=== PATIENT | female | born 1955 | race Caucasian/White ===

== ENCOUNTER 2016-10-26 08:48 | Day surgery (SDC) | payer BC ==
[2016-10-26] MEDS ORDERED: MIDAZOLAM 2 MG/2 ML VIAL IVP ONE (08:51)
[2016-10-26] MEDS ORDERED: fentaNYL 100 MCG/2 ML INJ IVP ONE (08:51)
[2016-10-26] MEDS ORDERED: NS 500 ML IV ONE (08:51)
[2016-10-26] MEDS ORDERED: PROPOFOL 200 MG/20 ML VIAL IVP ONE (08:51)
--- NOTE | 2016-10-26 09:09 | CPEKG ---
Heart Rate: 85 RR Interval: 706 QRSD Interval: 110 QT Interval: 352 QTC Interval: 419 QRS [place]: 67 T Wave [place]: -13 EKG Severity - ABNORMAL ECG - EKG Impression: ATRIAL FIBRILLATION, V-RATE 61-116 EKG Impression: NONSPECIFIC INTRAVENTRICULAR CONDUCTION DELAY Electronically Signed By: Leno Hong 26-Oct-2016 10:02:25
[2016-10-26 09:45] LABS: ANION GAP 9 mEq/L (8-16); CALCIUM 9.7 mg/dL (8.5-10.4); CARBON DIOXIDE 29 mEq/l (22-31); CHLORIDE 105 mEq/L (97-110); GLOMERULAR FILTRATION RATE 57; GLUCOSE 107 mg/dL (70-100); MAGNESIUM 2.3 mg/dL (1.6-2.3); POTASSIUM 4.8 mEq/L (3.5-5.2); SODIUM 143 mEq/L (134-144)
[2016-10-26 09:51] LABS: INR 1.1 (0.83-1.16); PROTIME(PATIENT) 14.1 SEC (12.0-15.0)
[2016-10-26 09:52] LABS: APTT 29.7 SEC (23.0-38.0)
--- NOTE | 2016-10-26 11:29 | CPEKG ---
Heart Rate: 58 RR Interval: 1034 P-R Interval: 216 QRSD Interval: 110 QT Interval: 416 QTC Interval: 409 P [place]: 72 QRS [place]: 63 T Wave [place]: 50 EKG Severity - ABNORMAL ECG - EKG Impression: SINUS RHYTHM EKG Impression: FIRST DEGREE AV BLOCK EKG Impression: LEFT ATRIAL ABNORMALITY EKG Impression: NONSPECIFIC INTRAVENTRICULAR CONDUCTION DELAY Electronically Signed By: Leno Hong 26-Oct-2016 13:08:24
--- NOTE | 2016-10-26 17:22 | SUROPNOTE ---
[facility] Operative Report - Surgery Date of procedure: 10/26/16 Indication: This patient is a 60 year old woman, with a history of paroxysmal atrial fibrillation, now presenting with likely persistent atrial fibrillation, duration of one month. This occurs despite medical management with Diltiazem and Rhythmol. She is anticoagulated with Eliquis and has not missed any doses. She is symptomatic with fatigue and dyspnea on exertion. Plan for cardioversion to convert to normal sinus rhythm. Procedures performed: 1. Cardioversion Description of procedure: Risks, benefits, and alternatives were discussed. Informed consent was obtained. Anesthesia was performed by Dr. Zambrano with propofol. Patient received a 200 joule biphasic synchronized shock using hands-off pads. This converted briefly (20 beats) to normal sinus rhythm, however then resulted in atrial flutter. Patient then received a second 200 joule biphasic synchronized shock using hands-off pads converting to sinus rhythm. Impression: 1. Successful cardioversion of atrial fibrillation to normal sinus rhythm. Plan: 1. Referral to Dr. Desir for consultation on ablation for atrial fibrillation. Portions of this report were documented by a medical economics consultant. I have reviewed this report and agree with the documentation. Report scribed for Dr. Romel Vicente. Report scribed by Fatemeh Ramos.
== END 2016-10-26 12:00 | disposition home or self-care (01) ==
LOC: FCATH 08:48
PROVIDERS: ATTEND Internal Medicine Interventional Cardiology
PROC: 5A2204Z Restoration of Cardiac Rhythm, Single (ICD-10-PCS; principal; 2016-10-26)
DX: I48.1 Persistent atrial fibrillation (principal); E78.4 Other hyperlipidemia; I10 Essential (primary) hypertension; G47.33 Obstructive sleep apnea (adult) (pediatric); Z87.891 Personal history of nicotine dependence
CPT/HCPCS: J2250; J2704

== ENCOUNTER → 2016-11-26 | Outpatient (CLI) | payer BC ==
[~2016-11-26] MED LIST: IOPAMIDOL (ISOVUE 370) 100 ML BTL IV ONE
== END ==
LOC: FIMAGING 15:30
PROVIDERS: ATTEND Internal Medicine Cardiovascular Disease
DX: I48.2 Chronic atrial fibrillation (principal); K44.9 Diaphragmatic hernia without obstruction or gangrene
CPT/HCPCS: Q9967

== ENCOUNTER 2017-02-12 06:28 | Observation (INO) | payer BC ==
[2017-02-12] MEDS ORDERED: NS 1,000 ML IV ONE (06:33)
[2017-02-12] MEDS ORDERED: MIDAZOLAM 2 MG/2 ML VIAL IVP ONE (06:33)
--- NOTE | 2017-02-12 06:59 | CPEKG ---
Heart Rate: 89 RR Interval: 674 QRSD Interval: 100 QT Interval: 364 QTC Interval: 443 QRS [place]: 54 T Wave [place]: -21 EKG Severity - ABNORMAL ECG - EKG Impression: ATRIAL FIBRILLATION, V-RATE 67-115 Electronically Signed By: Tony Desir 12-Feb-2017 13:13:39
[2017-02-12 07:28] LABS: % IMMATURE GRANULYOCYTES 0.3 % (0.0-1.1); ABSOLUTE IMMATURE GRANULOCYTES 0.01 10^3/uL (0.00-0.10); ADD DIFF? NO; ADD MORPH? NO; ADD SCAN? NO; ATYPICAL LYMPHOCYTE FLAG 10 (0-99); FRAGMENT RBC FLAG 0 (0-99); HEMATOCRIT 46.6 % (38.0-47.0); HEMOGLOBIN 15.7 g/dL (12.6-16.3); LEFT SHIFT FLG 0 (0-99); LIPEMIA HEMOLYSIS FLAG 80 (0-99); MEAN CELL HEMOGLOBIN 31.2 pg (27.9-34.1); MEAN CELL HEMOGLOBIN CONCENTR. 33.7 g/dL (32.4-36.7); MEAN CELL VOLUME 92.6 fL (81.5-99.8); MEAN PLATELET VOLUME 11.2 fL (8.7-11.7); PLATELET CLUMPS FLAG 50 (0-99); PLATELET COUNT 142 10^3/uL (150-400); RED BLOOD CELL COUNT 5.03 10^6/uL (4.18-5.33); RED CELL DISTRIBUTION WIDTH 13.7 % (11.5-15.2)
[2017-02-12 07:40] LABS: ANION GAP 13 mEq/L (8-16); CARBON DIOXIDE 20 mEq/l (22-31); CHLORIDE 110 mEq/L (97-110); GLOMERULAR FILTRATION RATE 56; GLUCOSE 98 mg/dL (70-100); MAGNESIUM 2.1 mg/dL (1.6-2.3); POTASSIUM 4.7 mEq/L (3.5-5.2); SODIUM 143 mEq/L (134-144)
[2017-02-12] MEDS ORDERED: LIDOCAINE 1% 300 MG/30 ML SDV ONE (07:47)
[2017-02-12] MEDS ORDERED: HEPARIN 10,000 UNIT/10 ML MDV ONE (07:48)
[2017-02-12] MEDS ORDERED: BUPIVACAINE 0.5% 30 ML SDV ONE (07:48)
[2017-02-12] MEDS ORDERED: HEPARIN/DEXTROSE 25,000 UNIT/500 ML BAG ONE (08:17)
[2017-02-12] MEDS ORDERED: MIDAZOLAM 2 MG/2 ML VIAL ONE (08:35)
[2017-02-12] MEDS ORDERED: ROCURONIUM 50 MG/5 ML VIAL ONE (08:36)
[2017-02-12] MEDS ORDERED: SUGAMMADEX SODIUM 200 MG/2 ML VIAL IVP ONE (08:36)
[2017-02-12] MEDS ORDERED: PROPOFOL/EMULSION 500 MG/50 ML BOTTLE IV ONE ×2 (08:36→10:16)
[2017-02-12] MEDS ORDERED: LIDOCAINE 2% 5 ML SDV ONE (08:36)
[2017-02-12] MEDS ORDERED: fentaNYL 100 MCG/2 ML INJ ONE (08:41)
[2017-02-12] MEDS ORDERED: PROPOFOL 200 MG/20 ML VIAL ONE ×2 (08:41→11:09)
[2017-02-12] MEDS ORDERED: IOPAMIDOL (ISOVUE-300) 100 ML BTL ONE ×2 (09:04→09:15)
[2017-02-12 09:53] LABS: INR 1.01 (0.83-1.16); PROTIME(PATIENT) 13.2 SEC (12.0-15.0)
[2017-02-12] MEDS ORDERED: PHENYLEPHRINE 10 MG/ML SDV ONE (10:51)
[2017-02-12] MEDS ORDERED: epHEDrine SULFATE 10 MG/ML SYR ONE (10:51)
[2017-02-12] MEDS ORDERED: ONDANSETRON 4 MG/2 ML VIAL ONE (10:51)
[2017-02-12] MEDS ORDERED: PROTAMINE SULFATE 50 MG/5 ML VIAL IVP ONE (11:20)
[2017-02-12] MEDS ORDERED: ONDANSETRON 4 MG/2 ML VIAL IVP PRN (11:45)
[2017-02-12] MEDS ORDERED: OXYCODONE/APAP 5/325 TAB PO PRN (11:45)
[2017-02-12] MEDS ORDERED: ACETAMINOPHEN 325 MG TAB PO PRN (11:45)
[2017-02-12 12:22] LABS: ANION GAP 8 mEq/L (8-16); CALCIUM 8.8 mg/dL (8.5-10.4); CARBON DIOXIDE 23 mEq/l (22-31); CHLORIDE 109 mEq/L (97-110); CREATININE 0.9 mg/dL (0.6-1.0); GLOMERULAR FILTRATION RATE > 60; GLUCOSE 129 mg/dL (70-100); MAGNESIUM 1.9 mg/dL (1.6-2.3); POTASSIUM 4.3 mEq/L (3.5-5.2); SODIUM 140 mEq/L (134-144)
--- NOTE | 2017-02-12 13:01 | EPPROC ---
Electrophysiology Procedure Note: ELECTROPHYSIOLOGIC STUDY AND BALLOON-CATHETER MEDIATED CRYOABLATION FOR PERSISTENT ATRIAL FIBRILLATION AND ATRIAL FLUTTER Procedures performed: 25815-07 EP evaluation with RA/RV/LA pace/record, with arrhythmia induction 77208-11 EP evaluation with RA/RV pace record, insert/reposition catheter, with arrhythmia induction 80839 Atrial fibrillation ablation Second arrhythmia Intracardiac echocardiogram Transseptal puncture Fluoroscopy INDICATION: Persistent atrial fibrillation PROCEDURE: The patient arrived in the Electrophysiology Laboratory in the fasting state. The right groin, left groin and right infraclavicular area were prepped and draped in the usual sterile fashion. Anesthesiologist administered general anesthesia Dr. Elen Zambrano . All catheters were placed percutaneously using the Seldinger technique and advanced into position under fluoroscopic guidance. One #7 Tamazight deflectable octapolar electrode catheter was placed in the His-bundle position via the left femoral vein (2mm spacing, IVC electrode for unipolar recordings). This catheter was placed in the coronary sinus after transseptal puncture and later placed in the SVC-R subclavian vein junction to pace the right phrenic nerve during right pulmonary vein ablation. One #8 Tamazight AcuNaV ultrasound catheter was placed in the left femoral vein and advanced into the right atrium. One #4 Tamazight sheath was inserted into the left femoral artery via percutaneous technique and used for continuous arterial blood pressure monitoring and intermittent ACT determination. Programmed stimulation was performed from the right atrium, left atrium (CS) and right ventricle. There was no evidence of AV accessory pathway. Intracardiac echo evaluation of the left atrium and pulmonary veins was performed. Baseline ACT was drawn and heparin bolus was administered and heparin drip was started prior to transseptal puncture. ACT was checked every 15 minutes and maintained in the range of 350-400 seconds. Presenting rhythm AFIB, cardioversion was performed. One 14Fr short sheath was placed in the right femoral vein. One 8Fr SL1 sheath was advanced into the right atrium via the 14Fr short sheath. Transseptal puncture was performed under intracardiac ultrasound, fluoroscopic and hemodynamic guidance placing the sheath into the left atrium. [place] RF needle ( C0 curve) was used. The mean left atrial pressure was 12 mmHg. Pulmonary vein angiogram was done using SL1 sheath. CT angiography of pulmonary veins was done previously. There were distinct LSPV, LIPV, RSPV and RIPV. 3D map of LA was performed using Pentaray catheter. This was merged with 3D CT image of left atrium. The SL1 sheath was exchanged for a Medtronic Flexcath sheath using an Amplatz stiff guide wire. A 28 mm Cryoballoon catheter with a 20 mm Achieve catheter was placed via the sheath into the left atrium. Intracardiac ultrasound and PV angiograms were used to assist in placing the mapping catheter at the antrum of the pulmonary veins. All pulmonary veins were isolated successfully using cryoballoon ablation using freeze/thaw/freeze cycles at 2-3-minute intervals, with good [id number] of isolation. Coumadin ridge/Ligament of Marco region was ablated. Pre and post pulmonary vein recordings were measured on the spiral Achieve catheter to ensure complete pulmonary vein isolation. During the right-sided ablation, phrenic nerve pacing was performed to assess the phrenic nerve strength ( manually and with ICE visualization of liver movement during phrenic capture) and the phrenic nerve was intact throughout the right-sided ablation and at the end of the procedure. An esophageal temperature probe (12 electrode, Circa) was placed by the anesthesiologist at the beginning of the procedure. Esophageal temperature was monitored continuously and cryoablation was interrupted if esophageal temperature was <15 C. Cryoapplications 6 total cryoablation time 1080s. Catheters were withdrawn into the RA. Ramp1 sheath was placed. 8mm Alexis catheter was placed via sheath into the RA. Lesions were applied to the CT isthmus and bidirectional conduction block achieved across the CT isthmus. ICE imaging post ablation was consistent with pre ablation imaging with no changes noted, moreover there was no left atrial/left ventricular thrombus and no pericardial effusion. The catheters were withdrawn. Protamine was given. The sheaths were removed and manual pressure was used for hemostasis. The patient was recovered from anesthesia. There were no complications. The patient was arousable and moving all four extremities at the end of the procedure. CONCLUSIONS: 1. Persistent atrial fibrillation. 2. Successful pulmonary vein isolation procedure (left and right pulmonary vein antrum) using cryoballoon ablation. 3. Atrial flutter seen clinically. Ablation of cavotricuspid isthmus achieving bidirectional conduction block. 4. No apparent complications. Patient Problems: Problems Problem Status Onset Atrial fibrillation and flutter Acute
--- NOTE | 2017-02-12 13:11 | CPEKG ---
Heart Rate: 81 RR Interval: 741 P-R Interval: 188 QRSD Interval: 106 QT Interval: 380 QTC Interval: 441 P [place]: 73 QRS [place]: 66 T Wave [place]: 52 EKG Severity - NORMAL ECG - EKG Impression: SINUS RHYTHM Electronically Signed By: Tony Desir 12-Feb-2017 13:13:33
[2017-02-12] MEDS: ENOXAPARIN 100 MG/ML SYR SC SCH (17:24)
[2017-02-13 05:04] LABS: % IMMATURE GRANULYOCYTES 0.4 % (0.0-1.1); ABSOLUTE IMMATURE GRANULOCYTES 0.03 10^3/uL (0.00-0.10); ADD DIFF? NO; ADD MORPH? NO; ADD SCAN? NO; ATYPICAL LYMPHOCYTE FLAG 0 (0-99); FRAGMENT RBC FLAG 0 (0-99); HEMATOCRIT 40.3 % (38.0-47.0); HEMOGLOBIN 13.4 g/dL (12.6-16.3); LEFT SHIFT FLG 0 (0-99); LIPEMIA HEMOLYSIS FLAG 80 (0-99); MEAN CELL HEMOGLOBIN 31.1 pg (27.9-34.1); MEAN CELL HEMOGLOBIN CONCENTR. 33.3 g/dL (32.4-36.7); MEAN CELL VOLUME 93.5 fL (81.5-99.8); PLATELET CLUMPS FLAG 40 (0-99); PLATELET COUNT 131 10^3/uL (150-400); RED BLOOD CELL COUNT 4.31 10^6/uL (4.18-5.33); RED CELL DISTRIBUTION WIDTH 13.6 % (11.5-15.2)
[2017-02-13 05:15] LABS: INR 0.98 (0.83-1.16); PROTIME(PATIENT) 12.9 SEC (12.0-15.0)
[2017-02-13 05:20] LABS: ANION GAP 6 mEq/L (8-16); CALCIUM 8.9 mg/dL (8.5-10.4); CARBON DIOXIDE 24 mEq/l (22-31); CHLORIDE 107 mEq/L (97-110); CREATININE 0.8 mg/dL (0.6-1.0); GLOMERULAR FILTRATION RATE > 60; GLUCOSE 112 mg/dL (70-100); POTASSIUM 4.3 mEq/L (3.5-5.2); SODIUM 137 mEq/L (134-144)
[2017-02-13] MEDS: ENOXAPARIN 100 MG/ML SYR SC SCH (05:55)
[2017-02-13 07:13] LABS: CK-MB INTERPRETATION POSITIVE (NEGATIVE)
--- NOTE | 2017-02-13 08:43 | CPEKG ---
Heart Rate: 76 RR Interval: 789 P-R Interval: 180 QRSD Interval: 104 QT Interval: 372 QTC Interval: 419 P [place]: 74 QRS [place]: 65 T Wave [place]: 67 EKG Severity - OTHERWISE NORMAL ECG - EKG Impression: SINUS RHYTHM EKG Impression: ATRIAL PREMATURE COMPLEX Electronically Signed By: Tony Desir 13-Feb-2017 13:58:29
[2017-02-13] MEDS ORDERED: PROPAFENONE HCL SR 225 MG CAP PO SCH (09:15)
[2017-02-13] MEDS ORDERED: PANTOPRAZOLE SODIUM 40 MG TAB PO SCH ×2 (09:15→10:45)
[2017-02-13] MEDS ORDERED: DILTIAZEM CD 180 MG CAP PO SCH ×2 (09:15→12:45)
--- NOTE | 2017-02-13 09:31 | ECHO ---
[id number] + + [address] : : [place] [address] : : [phone] + + Adult Echocardiographic Report + + :Name: AMY DE LUNA JStudy Date: 02/13/2017 08:20 AM : : Hospital Admission Number: [id number] Lo cation: 256: :: 1955 Gender: Female Height: 70 in : :Age: 61 yrs Race: WH Weight: 24 0 lb : :Reason For Study: Eval LV Fx : : BSA: 2.3 m eters2 : :History: F/U Post EP study : + + MMode/2D Measurements \T\ Calculations IVSd: 0.92 cm LVIDd: 4.6 cm FS: 44.0 % Ao root diam: 2.3 cm LVPWd: 1.1 cm LVIDs: 2.6 cm EDV(Teich): 95.4 ml ACS: 1.6 cm ESV(Teich): 23.5 ml EF(Teich): 75.3 % Normal Measurement Values: + + :LVIDd (3.5-5.7cm) IVSd (0.6-1.1cm) LVPWd (0.6-1.1cm) Aortic Root (2.0-3.7cm)Left Atrium (1.5-4.0cm): :LV Vol(d) (76-115ml) LV Vol(s) (29-48ml) Ejec Fraction (50-65%)PV Steven (0.6- 1.2m/s) TV Steven (0.4-1.0m/s) : :MV E Steven (0.8-1.0m/s)MV A Steven (0.3-1.0m/s)LVOT Steven (0.7-1.2m/s) Asc Ao Steven ( 0.9-1.8m/s) : + + Doppler Measurements \T\ Calculations MV E max steven: Ao V2 max: LV V1 max: MR max steven: 99.7 cm/sec 199.5 cm/sec 126.4 cm/sec 279.6 cm/sec MV A max steven: Ao max PG: LV V1 max PG: MR max P.8 cm/sec 15.9 mmHg 6.4 mmHg 31.3 mmHg MV E/A: 1.9 PA V2 max: 162.9 cm/sec PA max P.6 mmHg Left Ventricle The left ventricle is normal in size. There is normal left ventricular wall thickness. The left ventricular ejection fraction is normal. Ejection Fraction = 76%. The left ventricular wall motion is normal. Right Ventricle The right ventricle is normal in size and function. Atria The left atrial size is normal. Right atrial size is normal. Mitral Valve The mitral valve is normal. There is no evidence of mitral valve prolapse. There is no mitral valve stenosis. There is trace to mild mitral regurgitation. Tricuspid Valve Normal tricuspid valve. There is trace tricuspid regurgitation. Right ventricular systolic pressure is normal. Aortic Valve The aortic valve is normal in structure and function. There is no aortic stenosis. There is no aortic insufficiency. Pulmonic Valve The pulmonic valve is normal in structure and function. There is no pulmonic valvular regurgitation. Great Vessels The aortic root is normal size. Pericardium/Pleural There is no pericardial effusion. Conclusion A complete two-dimensional transthoracic echocardiogram was performed (2D, M-mode, Doppler and color flow Doppler). The left ventricular ejection fraction is normal. Ejection Fraction = 76%. The left ventricular wall motion is normal. The right ventricle is normal in size and function. The left atrial size is normal. The mitral valve is normal. There is trace to mild mitral regurgitation. There is trace tricuspid regurgitation. Right ventricular systolic pressure is normal. The aortic valve is normal in structure and function. There is no pericardial effusion. Final Reading Physician: Dr Rachna Baxter electronically signed on 02/13/2017 09:29 AM Ordering Physician: Tony Desir Performed By: Mike Grimaldo, RDCS
[2017-02-13 10:41] VITALS: TEMP 98.4
[2017-02-13 10:43] VITALS: RESP 18; O2SAT 98
[2017-02-13 12:48] VITALS: BP 135/64; PULSE 112
--- NOTE | 2017-02-14 04:51 | GDS ---
[f rep st] DISCHARGE SUMMARY ADMITTING DIAGNOSIS: Atrial fibrillation and atrial flutter. DISCHARGE DIAGNOSIS: Atrial fibrillation and atrial flutter, status post ablation. BRIEF HISTORY: This is a 61-year-old woman who was referred to Dr. Desir initially by Dr. Vicente for treatment of persistent atrial fibrillation. She had been well controlled on Rythmol until this past August 2016 when she started experiencing more symptoms of shortness of breath and fatigue. She was seen by Dr. Desir in the office and planned on being admitted eventually for this ablation. She does live in [place]. HOSPITAL COURSE: Dr. Desir performed a successful pulmonary vein isolation of the left and right pulmonary veins using cryo balloon ablation. Ablation of the cavotricuspid isthmus achieving bidirectional block was also performed. She did well overnight without any atrial arrhythmias. Her medication doses of Rythmol and Cardizem were initially decreased. Just prior to discharge, around noontime, she did start experiencing intermittent atrial fibrillation. She did not significantly feel these episodes. Subsequently, her Cardizem dose was increased back to her prior dose of 360 mg. Her Rythmol dose was lowered for now, to 225 b.i.d. The plan is to keep those medications for at least 1 month. She denied any kind of chest pain or shortness of breath. No pain in her legs or groin sites. TESTING DONE: Echocardiogram demonstrated ejection fraction of 76% without any wall motion abnormalities, normal left and right atrial size, trace to mild MR, and trace TR. Prior to the ablation on November 26, 2016, she had a chest CT that demonstrated normal PV anatomy and a moderate hiatal hernia. LAB WORK: On February 13, 2017, sodium is 137, potassium 4.3, chloride 107, bicarb 24, BUN 14, creatinine 0.8. CK-MB fraction 15, CK-MB percent 17.9, troponin is 5.6. These are elevated and within normal range post ablation. PT is 12.9, INR is 0.98. PHYSICAL EXAMINATION: VITAL SIGNS: Blood pressure is 123/75, pulse is 75, respirations 20, O2 saturation on 2 L is 98%. GENERAL: She is alert and oriented, in no acute distress, ambulating in her room. CARDIAC: Regular rate , rhythm without murmur, rub, or gallop. LUNGS: Clear to auscultation. ABDOMEN: Soft and nontender. No lower back discomfort. Groin sites are without bleeding. There is mild ecchymosis, a little more on the right side. No lower extremity edema or discoloration. Pedal pulses are +2 bilaterally. DISCHARGE MEDICATIONS: Rythmol 225 mg p.o. b.i.d., Cardizem CD 360 mg p.o. daily, Eliquis 5 mg BIDwhich she will resume tonight, and omeprazole 20 mg p.o. daily for 6 weeks post ablation, and refer to discharge reconciliation medication list for prior home medications. FOLLOWUP: She has a followup with Dr. Desir on February 28 at 3:45. DISCHARGE INSTRUCTIONS: Activity restrictions were reviewed, as well as the need for calling us if she feels that she is staying in atrial fibrillation and/ or flutter for longer than 24 hours, so we can do cardioversion. She is staying at her sister's house here, in town, and will check in with us, if need be. /[id number]/MODL MTDD
== END 2017-02-13 13:23 | disposition home or self-care (01) ==
LOC: FCATH 06:28 → INTOOBSV 11:49 → F2N 11:49
PROVIDERS: ADMIT Internal Medicine Cardiovascular Disease; ATTEND Internal Medicine Cardiovascular Disease
DX: I48.91 Unspecified atrial fibrillation (principal); I48.92 Unspecified atrial flutter; G47.33 Obstructive sleep apnea (adult) (pediatric)
CPT/HCPCS: 92960; 93005; 93306; 93312; 93613; 93655; 93656; 93662; C1731; C1766; G0378; C1730; C1732; C1759; C1893; J1644; J1650; J2250; J2370; J2405; J2704; J2720; J3010; Q9967